=== PATIENT | female | born 1990 | race Hispanic/Latino ===

== ENCOUNTER 2017-12-07 03:43 | Inpatient (IN) | payer OTHER ==
[2017-12-07] MEDS ORDERED: Penicillin G Potassium 5 MILL.UNITS VIAL ONE (04:14)
[2017-12-07 04:20] VITALS: BMI 28.1
[2017-12-07] MEDS ORDERED: Methylergonovine 0.2 MG/ML VIAL IM PRN (04:22)
[2017-12-07] MEDS ORDERED: Lidocaine 1% (PF) 30 ML VIAL SC PRN (04:22)
[2017-12-07] MEDS ORDERED: HYDROcodone/Acetaminophen 5/325 mg Tablet PO PRN ×2 (04:22)
[2017-12-07] MEDS ORDERED: Ondansetron HCl/PF 4 MG/2 ML Vial IVP PRN (04:22)
[2017-12-07] MEDS ORDERED: Ibuprofen 800 MG TAB PO PRN (04:22)
[2017-12-07] MEDS ORDERED: Promethazine HCl 25 MG/ML VIAL IM PRN (04:22)
[2017-12-07] MEDS ORDERED: Penicillin G Potassium 5 MILL.UNITS in Sodium Chloride 0.9% 100 ML IVPB SCH (04:30)
[2017-12-07] MEDS ORDERED: Lactated Ringer's 1,000 ML IV SCH ×2 (04:30)
[2017-12-07 04:52] LABS: Hemoglobin 9.1 g/dL (12.0-16.0); Mean Corpuscular Hemoglobin 22.8 pg (27.0-31.0); Mean Corpuscular Volume 71.2 fl (81.0-99.0); Mean Platelet Volume 7.6 fL (7.4-10.4); Platelet Count 340 thou/uL (130-400); RBC Distribution Width 15.3 % (11.5-14.5); Red Blood Cell (RBC) Count 3.99 mill/uL (4.20-5.40); White Blood Cell (WBC) Count 7.8 thou/uL (4.8-10.8)
[2017-12-07] MEDS: LR / Pitocin 40 units/1000 ml 1,000 ML IV PRN ×2 (04:55→06:18)
[2017-12-07] MEDS ORDERED: Penicillin G 2.5 MILL.units 2.5 MILL.UNITS in Premix Bag 1 BAG IVPB SCH (05:00)
[2017-12-07 05:11] LABS: Syphilis Antibody Nonreactive (Nonreactive); Syphilis Antibody Index 0.04 S/CO (<1.00 Non-Reactive)
[2017-12-07 05:12] LABS: HBSAg Index 0.22 S/CO (0-0.99); Hep B Surf Ag Non-Reactive S/CO (NonReactive)
[2017-12-07] MEDS ORDERED: Bisacodyl 10 MG SUPP PR PRN (07:52)
[2017-12-07] MEDS ORDERED: Lanolin Ointment 7 GM TUBE TOP PRN (07:52)
[2017-12-07] MEDS ORDERED: Measles/Mumps/Rubella 10 MCG/0.5 ML VIAL SC ONE (07:52)
[2017-12-07] MEDS ORDERED: LR / Pitocin 40 units/1000 ml 1,000 ML IV SCH (07:52)
[2017-12-07] MEDS ORDERED: Milk Of Magnesia 30 ML UDCUP PO PRN (07:52)
[2017-12-07] MEDS ORDERED: Adacel (T-DAP) 0.5 ML VIAL IM ONE (07:52)
[2017-12-07] MEDS: Prenatal Vitamin 1 TAB PO SCH (08:22)
[2017-12-07] MEDS: Docusate Calcium (SURFAK) 240 MG CAP PO SCH ×2 (08:22→21:27)
[2017-12-07] MEDS: Ferrous Sulfate 325 MG TAB PO SCH ×2 (08:22→17:09)
[2017-12-07] MEDS ORDERED: FLU VACC QS2017-18 36 mo. & older 0.5 ML SYRINGE IM ONE (09:00)
[2017-12-07] MEDS: Acetaminophen/Codeine 30-300mg Tablet PO PRN ×2 (13:58→18:13)
[2017-12-07] MEDS: Ibuprofen 800 MG TAB PO SCH (21:27)
[2017-12-08] MEDS: Ibuprofen 800 MG TAB PO SCH ×3 (04:28→21:36)
[2017-12-08 06:03] LABS: Hemoglobin 8.2 g/dL (12.0-16.0); Mean Corpuscular HGB CONC 31.8 g/dL (32.0-36.0); Mean Corpuscular Volume 72.2 fl (81.0-99.0); Platelet Count 296 thou/uL (130-400); RBC Distribution Width 15.3 % (11.5-14.5); Red Blood Cell (RBC) Count 3.55 mill/uL (4.20-5.40)
[2017-12-08] MEDS: Ferrous Sulfate 325 MG TAB PO SCH ×2 (08:56→18:03)
[2017-12-08] MEDS: Docusate Calcium (SURFAK) 240 MG CAP PO SCH ×2 (08:56→21:36)
[2017-12-08] MEDS: Prenatal Vitamin 1 TAB PO SCH (08:56)
[2017-12-08] MEDS: Acetaminophen/Codeine 30-300mg Tablet PO PRN ×2 (08:58→18:06)
[2017-12-09] MEDS: Acetaminophen/Codeine 30-300mg Tablet PO PRN (06:03)
[2017-12-09] MEDS: Ibuprofen 800 MG TAB PO SCH (06:03)
[2017-12-09] MEDS: Docusate Calcium (SURFAK) 240 MG CAP PO SCH (08:47)
[2017-12-09] MEDS: Ferrous Sulfate 325 MG TAB PO SCH (08:47)
[2017-12-09] MEDS: Prenatal Vitamin 1 TAB PO SCH (08:47)
[2017-12-09 08:53] VITALS: BP 126/79; TEMP 98.4
[2017-12-09] MEDS ORDERED: FLU VACC QS2017-18 36 mo. & older 0.5 ML SYRINGE IM ONE (11:15)
== END 2017-12-09 11:20 | disposition home or self-care (01) | DRG 775 ==
LOC: L&D/OP 03:43 → L&D 04:24 → 3SW 07:45
PROVIDERS: ADMIT Family Medicine; ATTEND Family Medicine
PROC: 10E0XZZ Delivery of Products of Conception, External Approach (ICD-10-PCS; principal; 2017-12-07)
DX: O99.824 Streptococcus B carrier state complicating childbirth (principal); Z23 Encounter for immunization; Z37.0 Single live birth; Z3A.39 39 weeks gestation of pregnancy
CPT/HCPCS: 36415; 85027; 86780; 87340; 90471; 90682; 90707; 90715; 99285; G0008; J2001; J2540; J7050; Q2036

== ENCOUNTER 2019-03-17 15:34 | Outpatient (CLI) | payer OTHER ==
--- NOTE | 2019-03-17 16:58 | ULT ---
OB ULTRASOUND: 03/17/19 HISTORY: anatomy. FINDINGS: A single live intrauterine gestation is seen with measurements corresponding to an estimated gestatio nal age of 21 weeks, 3 days and SELAM at 07/25/19. The estimated weight measures 411 grams or 14 o z. This corresponds to a 14th percentile in the Hadlock criteria. measurements are as follows: BPD 5.11 cm 21 weeks, 4 days HC 19.25 cm 21 weeks, 4 days AC 16.66 cm 21 weeks, 5 days FL 3.40 cm 20 weeks, 5 days heart rate measures 139 beats per minute. Placenta is anteriorly located without evidence of pl acenta previa. Amniotic fluid is adequate. A three vessel cord, cord insertion, kidneys, bladder, stomach, four chamber heart, lateral sagar tricles, cerebellum, spine, lips/nose, upper and lower extremities are visualized. No definite signal anomalies are seen. The cervical length measures 3.2 cm. IMPRESSION: Single live IUP of 21 weeks, 3 days estimated gestational age and SELAM of 07/25/19. POS: KOLBY
== END 2019-03-17 15:35 | disposition home or self-care (01) ==
LOC: BICULT 15:34
PROVIDERS: ATTEND Family Medicine
DX: Z34.92 Encounter for supervision of normal pregnancy, unspecified, second trimester (principal); Z3A.21 21 weeks gestation of pregnancy
CPT/HCPCS: 76805

== ENCOUNTER 2019-07-08 12:42 | Inpatient (IN) | payer OTHER ==
[2019-07-08 13:12] VITALS: BMI 30.7
[2019-07-08] MEDS ORDERED: Penicillin G Potassium 5 MILL.UNITS VIAL ONE (13:40)
[2019-07-08] MEDS ORDERED: Sodium Chloride 0.9% 100 ML ONE (13:40)
--- NOTE | 2019-07-08 13:45 | PDOC.FPRHP ---
- History of Present Illness Chief Complaint: contractions History of Present Illness: 29 yo @38.1wks here with contractions [id number]. Denies LOF, VB, discharge , dysuria. Endorses movement. GBS positive. - Allergies/Adverse Reactions Allergies Allergy/AdvReac Type Severity Reaction Status Date / Time No Known Drug Allergies Allergy Verified 07/08/19 13:08 - Home Medications Medication Instructions Recorded Confirmed Type Ferrous Sulfate 325 mg PO BID 05/13/16 07/08/19 History Ondansetron HCl [Zofran] 4 mg PO Q4HR PRN 07/08/19 07/08/19 History - History PMHx: PSHx: FHx: Social: - Vital signs BP: [] HR: [] RR: [] Tmax: [] Pox: []% on [] Wt: [] FMR H&P: Upper Level - Plan Date/Time: 07/08/19 1343 I, [], have evaluated this patient and agree with findings/plan as outlined by internal medicine hospitalist resident. Pertinent changes/additions are listed here.
--- NOTE | 2019-07-08 13:47 | PDOC.FPROB ---
FMR OB H&P: HPI - History of Present Illness History of Present Illness: 29 yo @38.1wks here with contractions [id number]. Denies LOF, VB, discharge , dysuria. Endorses movement. GBS positive. FMR OB H&P: Current - Care : 5 Para: [id number] Gestational age: 38.1 Course/Complications: none boy FMR OB H&P: History - Past Medical History PMH: Anemia of - OB History OB History: 4 prior SVDs first baby at 36wks no complications - Surgical History Sx History: denies - Social History Social History: denies smoking, alcohol, drug use - Family History Family History: grandmother, uncles with diabetes FMR OB H&P: Medications - Current Home Medications: Medication Instructions Recorded Confirmed Type Ferrous Sulfate 325 mg PO BID 05/13/16 07/08/19 History Ondansetron HCl [Zofran] 4 mg PO Q4HR PRN 07/08/19 07/08/19 History Allergies/Adverse Reactions: Allergies Allergy/AdvReac Type Severity Reaction Status Date / Time No Known Drug Allergies Allergy Verified 07/08/19 13:08 FMR OB H&P: ROS - Review of Systems General: denies: fever/chills, weight/appetite/sleep changes ENT: denies: nasal congestion, rhinorrhea Cardiovascular: denies: chest pain, edema Gastrointestinal: denies: abdominal pain, cramping, nausea, vomiting Genitourinary (Female): reports: contractions. denies: incontinence, dysuria, hematuria, polyuria, vaginal discharge, vaginal pain, vaginal bleeding Musculoskeletal: denies: pain, stiffness Neurologic: denies: numbness, syncope Integumentary: denies: itching, rash Breast: denies: lumps, bumps Psychological: denies: depression, anxiety FMR OB H&P: Vital Signs - Heart Tones Baseline: 130 Variability: moderate Acceleration: present Deceleration: absent Category: category 1 FMR OB H&P: Physical Exam - Physical Exam General: NAD, awake, alert and oriented HEENT: normocephalic and atraumatic, PERRLA Heart: RRR, normal S1/S2, no murmurs/rubs/gallops General: CTAB, no respiratory distress, good air movement Abdomen: soft, gravid Skin: no rash, good tugor, capillary refill <2 seconds Lymphatic: no unusual bruising or bleeding, no purpura Psychiatric: intact recent and remote memory, good judgement and insight - Pelvic Exam SVE: /-2 FMR OB H&P: A/P - Problem List (1) Third trimester Current Visit: Yes Status: Acute Code(s): Z34.93 - ENCNTR FOR SUPRVSN OF NORMAL PREG, UNSP, THIRD TRIMESTER (2) Anemia affecting Current Visit: Yes Status: Acute Code(s): O99.019 - ANEMIA COMPLICATING , UNSPECIFIED TRIMESTER (3) Positive GBS test Current Visit: Yes Status: Acute Code(s): B95.1 - STREPTOCOCCUS, GROUP B, CAUSING DISEASES CLASSD ELSWHR Discussion: Date/Time: 07/08/19 1346 29 yo @38.1wks admitted in labor. #sIUP- -expectant management -q2h cervical checks #GBS positive- -will start pcn PCP: Dr. Adan Obregon This H&P was discussed with Dr. Mari. Jorge Dwyer MD, PGY-3 Addendum - Attending - Attending Attestation Date/Time: 07/08/19 1631 I personally evaluated the patient and discussed the management with Dr. Slater. Pt. admitted, Pen G ordered. Dr. Obregon notified. I agree with the History, Examination, Assessment and Plan documented above with any addition or exceptions noted below.
[2019-07-08] MEDS ORDERED: Acetaminophen 500 MG TAB PO PRN (13:53)
[2019-07-08] MEDS ORDERED: Promethazine HCl 25 MG/ML VIAL IM PRN (13:53)
[2019-07-08] MEDS ORDERED: hydrALAZINE 20 MG/ML VIAL SLOW IVP PRN ×2 (13:53→17:44)
[2019-07-08] MEDS ORDERED: Butorphanol Tartrate 1 MG/ML VIAL SLOW IVP PRN (13:53)
[2019-07-08] MEDS ORDERED: Ondansetron PF 4 MG/2 ML Vial IVP PRN ×2 (13:53→17:44)
[2019-07-08] MEDS ORDERED: Lidocaine 1% (PF) 30 ML VIAL SC PRN (13:53)
[2019-07-08] MEDS ORDERED: NS / Oxytocin 40 units/1000ml 1,000 ML IV PRN (13:53)
[2019-07-08] MEDS ORDERED: Penicillin G 2.5 MILL.units 2.5 MILL.UNITS in Premix Bag 1 BAG IVPB SCH (14:00)
[2019-07-08] MEDS ORDERED: Lactated Ringer's 1,000 ML IV SCH (14:00)
[2019-07-08] MEDS ORDERED: Penicillin G Potassium 5 MILL.UNITS in Sodium Chloride 0.9% 100 ML IVPB SCH (14:00)
[2019-07-08 14:09] LABS: Mean Corpuscular HGB CONC 32.6 g/dL (32.0-36.0); Mean Corpuscular Hemoglobin 24.9 pg (27.0-31.0); Mean Corpuscular Volume 76.4 fL (78.0-98.0); Mean Platelet Volume 7.9 fL (7.4-10.4); Platelet Count 230 thou/uL (130-400); Red Blood Cell (RBC) Count 4.02 mill/uL (4.20-5.40); White Blood Cell (WBC) Count 8.3 thou/uL (4.8-10.8)
[2019-07-08] MEDS ORDERED: Misoprostol 200 MCG TAB ONE (14:10)
[2019-07-08 14:55] LABS: Syphilis Antibody Nonreactive (Nonreactive); Syphilis Antibody Index 0.05 S/CO (<1.00 Non-Reactive)
[2019-07-08 14:56] LABS: Hep B Surf Ag Non-Reactive S/CO (NonReactive)
--- NOTE | 2019-07-08 17:19 | PDOC.OPDEL ---
OB Operative/Delivery Note Delivery Dr/Surgeon: Jimi Obregon, Jorge Dwyer Pre-Delivery Diagnosis: active labor Procedure/Post Delivery Dx: spontaneous vaginal delivery Weeks gestation: 38 (38.1) Anesthesia: none - Findings A Sex: male - 1 min: 9 - 5 min: 9 - Additional Findings/Plan Placenta delivered: spontaneous Repaired Obstetrical Laceration: none Estimated blood loss: 150 Compilations/Other Findings: Delivering Physician: Jorge Dwyer MD, PGY-3 Attending: Jimi Obregon Procedure: Spontaneous Vaginal Delivery EBL:150ml Pre-op Diagnosis: 1. Term intrauterine in labor Post-op Diagnosis: 1. Term intrauterine , delivered Indications: [age] y/o female presents in active labor. Delivery Note: This is 29yo F @38.1wks who delivered a viable M at 1707. Following an uneventful antepartum course, a vigorous male was delivered over an intact perineum in the occipitoanterior position. Anterior Shoulder and then remainder of the body delivered. No nuchal cord. The head was held down and mouth and nares were bulb suctioned. Cord clamped and cut and cord blood collected. Placenta delivered intact in the Land/presentation with a 3 vessel cord noted. Fundal massage was performed and the fundus was firm. The cervix and vagina were inspected and found to be free of lacerations. Infant went to nursery in good condition for routine care. Apgars were 9 /9 at 1 & 5 minutes, respectively. Patient tolerated delivery well and went to after routine recovery/care. Post delivery plan: routine recovery
[2019-07-08] MEDS ORDERED: HYDROcodone/Acetaminophen 5/325 mg Tablet PO SCH (17:30)
[2019-07-08] MEDS ORDERED: Bisacodyl 10 MG SUPP PR PRN (17:44)
[2019-07-08] MEDS ORDERED: NS / Oxytocin 40 units/1000ml 1,000 ML IV SCH (17:44)
[2019-07-08] MEDS ORDERED: Milk Of Magnesia 30 ML UDCUP PO PRN (17:44)
[2019-07-08] MEDS ORDERED: Ibuprofen 800 MG TAB PO SCH (18:45)
[2019-07-08] MEDS: Ibuprofen 800 MG TAB PO SCH (21:56)
[2019-07-08] MEDS: Docusate Calcium (SURFAK) 240 MG CAP PO SCH (21:56)
[2019-07-08] MEDS: HYDROcodone/Acetaminophen 5/325 mg Tablet PO PRN (21:57)
[2019-07-08] MEDS ORDERED: Sodium Chloride 0.9% 10 ML ONE (23:48)
--- NOTE | 2019-07-09 04:04 | PDOC.PP ---
Post Progress Note Post Day #: 1 PO intake tolerated: yes Flatus: yes Ambulation: yes Vital Signs (12 hours) Temp Pulse Resp BP Pulse Ox 07/08/19 23:50 98.2 F 73 18 127/60 99 07/08/19 21:50 98.8 F 67 18 124/72 99 07/08/19 20:50 98.3 F 69 18 123/76 98 07/08/19 19:50 98.2 F 66 18 126/76 100 Weight Weight 88.904 kg - Physical Examination General: NAD Cardiovascular: no m/r/g Respiratory: non-labored breathing Abdominal: appropriately TTP Neurological: no gross focal deficits Psychiatric: A&Ox3 Result Diagrams: 07/09/19 04:04 Additional Labs: Post Labs Blood Type B POSITIVE 07/08/19 14:01 Hep Bs Antigen Non-Reactive S/CO (NonReactive) 07/08/19 14:01 (1) Third trimester Code(s): Z34.93 - ENCNTR FOR SUPRVSN OF NORMAL PREG, UNSP, THIRD TRIMESTER Status: Acute (2) Anemia affecting Code(s): O99.019 - ANEMIA COMPLICATING , UNSPECIFIED TRIMESTER Status : Acute (3) Positive GBS test Code(s): B95.1 - STREPTOCOCCUS, GROUP B, CAUSING DISEASES CLASSD ELSWHR Status : Acute (4) (spontaneous vaginal delivery) Code(s): O80 - ENCOUNTER FOR FULL-TERM UNCOMPLICATED DELIVERY Status: Acute - Assessment/Plan 29 yo @38.1wks now s/p . -Continue routine care -Pt doing well -baby to stay for 48 hour obs d/t inadequate GBS prophylaxis Addendum - Attending - Attending Attestation Date/Time: 07/10/19 1041 I personally evaluated the patient and discussed the management with Dr. Slater. I agree with the History, Examination, Assessment and Plan documented above.
[2019-07-09] MEDS: HYDROcodone/Acetaminophen 5/325 mg Tablet PO PRN ×4 (04:06→21:20)
[2019-07-09 04:13] LABS: Hemoglobin 9.6 g/dL (12.0-16.0)
[2019-07-09] MEDS: Ibuprofen 800 MG TAB PO SCH ×3 (06:08→21:20)
[2019-07-09] MEDS: Ferrous Sulfate 325 MG TAB PO SCH ×2 (08:22→16:57)
[2019-07-09] MEDS: Docusate Calcium (SURFAK) 240 MG CAP PO SCH ×2 (08:22→21:19)
[2019-07-09] MEDS: Prenatal Vitamin 1 TAB PO SCH (08:22)
[2019-07-09] MEDS ORDERED: Adacel (T-DAP) 0.5 ML SYRINGE IM ONE (09:00)
[2019-07-09] MEDS ORDERED: Ondansetron ODT 4 MG TAB PO PRN (10:43)
[2019-07-10] MEDS: Ibuprofen 800 MG TAB PO SCH (05:40)
[2019-07-10] MEDS: HYDROcodone/Acetaminophen 5/325 mg Tablet PO PRN (06:45)
[2019-07-10 07:57] VITALS: BP 118/56; TEMP 97.8
[2019-07-10] MEDS: Prenatal Vitamin 1 TAB PO SCH (09:09)
[2019-07-10] MEDS: Docusate Calcium (SURFAK) 240 MG CAP PO SCH (09:09)
[2019-07-10] MEDS: Ferrous Sulfate 325 MG TAB PO SCH (09:09)
== END 2019-07-10 09:50 | disposition home or self-care (01) | DRG 807 ==
LOC: L&D/OP 12:42 → L&D-LIB 14:39 → 3SW 19:45
PROVIDERS: ADMIT Family Medicine; ATTEND Family Medicine
PROC: 10E0XZZ Delivery of Products of Conception, External Approach (ICD-10-PCS; principal; 2019-07-08)
PROC: 10907ZC Drainage of Amniotic Fluid, Therapeutic from Products of Conception, Via Natural or Artificial Opening (ICD-10-PCS; 2019-07-08)
DX: O99.824 Streptococcus B carrier state complicating childbirth (principal); Z37.0 Single live birth; O99.02 Anemia complicating childbirth; D64.9 Anemia, unspecified; Z3A.38 38 weeks gestation of pregnancy
CPT/HCPCS: 36415; 85014; 85018; 85027; 86780; 86850; 86900; 86901; 87340; 90715; 99285; J2405; J2540; J3490; Q0162

== ENCOUNTER 2019-11-02 19:31 | Emergency (ER) | payer OTHER, SELFPAY ==
[2019-11-02 20:07] LABS: #Eosinphils 0.1 thou/uL (0.0-0.7); #Lymphocytes 2.2 thou/uL (1.20-3.40); #Monocytes 0.5 thou/uL (0.11-0.59); %Basophils 0.1 % (0.0-1.0); %Eosinophils 1.4 % (0.0-10.0); %Lymphocytes 32.5 % (21.0-51.0); %Monocytes 7.9 % (0.0-10.0); %Neutrophils 58.1 % (42.0-75.0); Hemoglobin 10.1 g/dL (12.0-16.0); Mean Corpuscular HGB CONC 31.9 g/dL (32.0-36.0); Mean Corpuscular Hemoglobin 24.2 pg (27.0-31.0); Mean Corpuscular Volume 75.7 fL (78.0-98.0); Mean Platelet Volume 7.4 fL (7.4-10.4); Platelet Count 305 thou/uL (130-400); RBC Distribution Width 14.5 % (11.5-14.5); Red Blood Cell (RBC) Count 4.19 mill/uL (4.20-5.40); White Blood Cell (WBC) Count 6.8 thou/uL (4.8-10.8)
[2019-11-02 20:28] LABS: Bacteria/HPF None Seen HPF (None Seen); Bilirubin Negative (Negative); Blood, Urine Negative (Negative); Clarity Clear (Clear); Glucose, Urine (Dipstick) Normal (Negative); Leukocyte 75 Leu/uL (Negative); Nitrite Negative (Negative); Protein, Urine (Dipstick) 20 mg/dL (Neg-Trace); RBC/HPF 0-3 HPF (0-3); Squamous Epithelial 0-3 HPF (0-3); WBC/HPF 0-3 HPF (0-3)
[2019-11-02 20:29] LABS: Pregnancy Test - Urine (BHCG) Negative (Negative); Pregu Control Background? CLEAR/WHITE (CLR/WHITE); Pregu Control Bar Appear? YES (CONTROL BAR); Specific Gravity 1.027 (1.002-1.036)
[2019-11-02 20:29] LABS: ALT (SGPT) 14 U/L (8-55); AST (SGOT) 19 U/L (5-34); Albumin 4.1 g/dL (3.5-5.0); Alkaline Phosphatase 77 U/L (40-110); Anion Gap 11 mmol/L (10-20); BUN (Urea Nitrogen) 12 mg/dL (7.0-18.7); Bilirubin, Total 0.5 mg/dL (0.2-1.2); Calc. Creatinine Clearance 0 mL/min (70-130); Calcium 8.4 mg/dL (7.8-10.44); Carbon Dioxide 24 mmol/L (22-29); Chloride 107 mmol/L (98-107); Estimated GFR-MDRD Greater than 90; Globulin 2.7 g/dL (2.4-3.5); Glucose 83 mg/dL (70-105); Potassium 4.1 mmol/L (3.5-5.1); Protein, Total 6.8 g/dL (6.0-8.3); Sodium 138 mmol/L (136-145)
[2019-11-02] MEDS ORDERED: Ondansetron ODT 4 MG TAB ONE (22:24)
--- NOTE | 2019-11-02 23:01 | ULT ---
EXAM: Transabdominal and transvaginal pelvic ultrasound with Doppler PROVIDED CLINICAL HISTORY: Abdominal pain COMPARISON: None FINDINGS: The uterus measures about 10.4 x 4.6 x 6.7 cm. Endometrial thickness is about 9 mm. Intrauterine siena ce is noted, which appears situated within the lower uterine segment/cervical canal. The right ovary appears sonographically normal. The left ovary is not visualized. There is no signifi cant free pelvic fluid evident. Color Doppler and spectral analysis of the right ovarian waveforms demonstrates normal flow. IMPRESSION: 1. Nonvisualization of the left ovary. 2. Abnormal positioning of the intrauterine device.
== END 2019-11-02 23:41 | disposition home or self-care (01) ==
LOC: ERS 19:31
DX: T83.84XA Pain due to genitourinary prosthetic devices, implants and grafts, initial encounter (principal)
CPT/HCPCS: 36415; 76856; 80053; 81003; 81015; 81025; 85025; Q0162

== ENCOUNTER 2021-01-29 20:26 | Emergency (ER) | payer SELFPAY ==
[2021-01-29 20:51] LABS: #Eosinphils 0.1 thou/uL (0.0-0.7); #Lymphocytes 2.6 thou/uL (1.20-3.40); #Monocytes 0.8 thou/uL (0.11-0.59); #Neutrophils 5.4 thou/uL (1.40-6.50); %Basophils 0.4 % (0.0-1.0); %Eosinophils 1.1 % (0.0-10.0); %Monocytes 8.7 % (0.0-10.0); %Neutrophils 60.8 % (42.0-75.0); Hemoglobin 14.4 g/dL (12.0-16.0); Mean Corpuscular HGB CONC 33.2 g/dL (32.0-36.0); Mean Corpuscular Hemoglobin 30.3 pg (27.0-31.0); Mean Corpuscular Volume 91.3 fL (78.0-98.0); Mean Platelet Volume 6.9 fL (7.4-10.4); Platelet Count 284 thou/uL (130-400); RBC Distribution Width 11.9 % (11.5-14.5); Red Blood Cell (RBC) Count 4.74 mill/uL (4.20-5.40); White Blood Cell (WBC) Count 8.9 thou/uL (4.8-10.8)
[2021-01-29 21:10] LABS: ALT (SGPT) 29 U/L (8-55); AST (SGOT) 22 U/L (5-34); Albumin 4.4 g/dL (3.5-5.0); Alkaline Phosphatase 90 U/L (40-110); Anion Gap 12 mmol/L (10-20); BUN (Urea Nitrogen) 13 mg/dL (7.0-18.7); Bilirubin, Total 0.5 mg/dL (0.2-1.2); Calc. Creatinine Clearance 0 mL/min (70-130); Calcium 8.7 mg/dL (7.8-10.44); Carbon Dioxide 26 mmol/L (22-29); Chloride 107 mmol/L (98-107); Globulin 2.8 g/dL (2.4-3.5); Glucose 82 mg/dL (70-105); Potassium 4.1 mmol/L (3.5-5.1); Protein, Total 7.2 g/dL (6.0-8.3); Sodium 141 mmol/L (136-145)
== END 2021-01-29 22:25 | disposition home or self-care (01) ==
LOC: ERS 20:26
DX: R42 Dizziness and giddiness (principal); R53.81 Other malaise
CPT/HCPCS: 36415; 80053; 85025; 93005

== ENCOUNTER 2021-03-10 22:39 | Emergency (ER) | payer SELFPAY | END 2021-03-10 23:25 | disposition home or self-care (01) | LOC: ERS 22:39 | DX: M79.645 Pain in left finger(s) (principal) | CPT/HCPCS: 99281 ==

== ENCOUNTER 2022-10-06 17:37 | Emergency (ER) | payer SELFPAY ==
[2022-10-06 20:07] LABS: SARS-CoV-2 NAA Rapid Test Not Detected (NotDetected)
== END 2022-10-06 19:48 | disposition home or self-care (01) ==
LOC: ERS 17:37
DX: R05.1 Acute cough (principal); E78.00 Pure hypercholesterolemia, unspecified; Z20.822 Contact with and (suspected) exposure to COVID-19
CPT/HCPCS: 87081; 87430; 99283

== ENCOUNTER 2024-03-24 10:58 | Emergency (ER) | payer SELFPAY ==
[2024-03-24] MEDS ORDERED: Ibuprofen 200 MG TAB ONE (11:59)
== END 2024-03-24 12:50 | disposition home or self-care (01) ==
LOC: ERS 10:58
DX: S46.912A Strain of unspecified muscle, fascia and tendon at shoulder and upper arm level, left arm, initial encounter (principal); Z87.891 Personal history of nicotine dependence; X58.XXXA Exposure to other specified factors, initial encounter

== ENCOUNTER → 2025-05-03 | Emergency (ER) | payer SELFPAY ==
[~2025-05-03] MED LIST: Ondansetron PF 4 MG/2 ML Vial ONE
[2025-05-03 18:55] LABS: #Basophils Less than 0.03 10x3/uL (0.0-0.2); #Eosinophils Less than 0.03 10x3/uL (0.0-0.7); #Monocytes 0.36 10x3/uL (0.11-0.59); #Neutrophils 7.91 10x3/uL (1.40-6.50); %Basophils 0.2 % (0.0-1.0); %Eosinophils 0.0 % (0.0-10.0); %Lymphocytes 20.9 % (21.0-51.0); %Monocytes 3.4 % (0.0-10.0); %Neutrophils 75.3 % (42.0-75.0); Hematocrit 42.4 % (36.0-47.0); Hemoglobin 14.8 g/dL (12.0-16.0); Mean Corpuscular Hemoglobin 30.4 pg (27.0-31.0); Mean Corpuscular Volume 87.1 fL (78.0-98.0); Platelet Count 368 10x3/uL (130-400); Red Blood Cell (RBC) Count 4.87 mill/uL (4.20-5.40); White Blood Cell (WBC) Count 10.50 10x3/uL (4.8-10.8)
[2025-05-03 19:19] LABS: ALT (SGPT) 18 U/L (Less than 34); AST (SGOT) 18 U/L (11-34); Albumin 4.5 g/dL (3.1-4.5); Alkaline Phosphatase 99 U/L (40-110); Anion Gap 15 mmol/L (10-20); BUN (Urea Nitrogen) 17 mg/dL (7.0-18.7); Bilirubin, Total 0.9 mg/dL (0.3-1.2); Calc. Creatinine Clearance 0 mL/min (70-130); Calcium 9.3 mg/dL (7.8-10.44); Carbon Dioxide 23 mmol/L (22-29); Chloride 103 mmol/L (98-107); Globulin 3.3 g/dL (2.4-3.5); Glucose 116 mg/dL (70-105); Potassium 3.3 mmol/L (3.5-5.1); Sodium 138 mmol/L (136-145)
== END ==
LOC: ERS 18:24
DX: R11.2 Nausea with vomiting, unspecified (principal); R19.7 Diarrhea, unspecified; Z87.891 Personal history of nicotine dependence
CPT/HCPCS: 80053; 85025; 96361; 96374; 96376; J2405